=== PATIENT | female | born 1980 | race Caucasian/White ===

== ENCOUNTER → 2017-01-07 | Outpatient (CLI) | payer BC ==
[~2017-01-07] MED LIST: ACET-749 PO; IBUP-1427 PO; PRENTAB26 PO
--- NOTE | 2017-01-07 09:53 | DIAGNOSTIC IMAGING REPORT ---
Ultrasound left axillary region LEFT EXTREMITY NONVASCULAR LIMITED CLINICAL HISTORY: ENLARGED LYMPH NODES LEFT AXILLARY adenopathy TECHNIQUE: Ultrasound COMPARISON STUDY: 12/27/2015 FINDINGS: Unchanged minimal left axillary adenopathy. The palpable node is unchanged in dimension. These remain morphologically benign. IMPRESSION: Stable benign-appearing left axillary node Electronically signed by: Marco Antonio Porras M.D. 01/07/2017 9:51 AM Dictated Date/Time: 01/07/2017 9:49 AM
== END | disposition home or self-care (01) ==
LOC: C.ULTRBC 09:10
PROVIDERS: ATTEND Family Medicine
DX: R59.9 Enlarged lymph nodes, unspecified (principal)

== ENCOUNTER → 2017-02-04 | Outpatient (CLI) | payer BC | END | disposition home or self-care (01) | LOC: C.LAB1850 07:01 | PROVIDERS: ATTEND Obstetrics & Gynecology | DX: N64.3 Galactorrhea not associated with childbirth (principal) ==

== ENCOUNTER → 2017-05-13 | Outpatient (CLI) | payer BC ==
--- NOTE | 2017-05-13 15:23 | MAMMOGRAPHY REPORT ---
UNILATERAL LEFT DIGITAL DIAGNOSTIC MAMMOGRAM TOMOSYNTHESIS WITH CAD AND TARGETED LEFT ULTRASOUND: 05/01 CLINICAL HISTORY: The patient reports a palpable left breast lump for approximately 2 weeks. TECHNIQUE: Breast tomosynthesis in addition to standard 2D mammography was performed. Current study was also evaluated with a Computer Aided Detection (CAD) system. Left CC and MLO 2-D and tomosynthes is images were obtained. COMPARISON: No prior exams were available for comparison. BREAST COMPOSITION: The tissue of the left breast is heterogeneously dense, which may obscure small masses. FINDINGS: A triangle marker mancia the site of the palpable lump in the left medial breast at approxim ately 9:00. There is a possible lobulated 7 mm mass seen within the left medial breast near the huong on of the palpable marker, not clearly evident on the MLO view. The remainder of the left breast is negative, without suspicious masses, calcifications, or areas of architectural distortion noted. Targeted ultrasound was performed of the area of the palpable lump pointed out by the patient, in the left breast at 9:30, 3 cm from the nipple. At the site of the palpable lump there is an oval gently lobulated parallel circumscribed hypoechoic mass which measures 8 x 4 x 7 mm. This corresponds with the mammographic mass and is indeterminant. Ultrasound guided core needle biopsy is recommended for further evaluation. At the time of the ultrasound exam, the patient reports an existing palpable lump in the left upper o uter quadrant which she wanted me to evaluate with ultrasound. At the site of the palpable lump in t ej left breast at 2:00, approximately 9 cm from the nipple, there is an oval circumscribed hypoechoic mass with an echogenic fatty hilum, measuring 8 x 4 x 7 mm. Internal vascularity is present. This is benign and compatible with an intramammary lymph node. IMPRESSION: ACR BI-RADS CATEGORY 4: SUSPICIOUS, TARGETED ULTRASOUND ACR BI-RADS CATEGORY 4: SUSPICIO US 1. Hypoechoic 8 mm mass in the left breast at 9:30 at the site of the palpable lump pointed out by shaka pagan patient. The mass is indeterminate and ultrasound-guided core needle biopsy is recommended for fu rther evaluation. This may represent a fibroadenoma. 2. Benign intramammary lymph node at the site of another palpable lump pointed out by the patient in the left 2:00 breast. A phone call was made to the physician's office to confirm faxed results were received. The patient has been verbally notified of the results. She tentatively scheduled the biopsy before leaving the [facility]. Approximately 10% of breast cancers are not detected with mammography. A negative mammographic report should not delay biopsy if a clinically suggestive mass is present. Rina Rowan M.D. ah/:05/13/2017 10:33:56 Financial Analysis Consultant: Geno PEOPLES)([place]), [facility] letter sent: Abnormal 4/5 BI-RADS Code: ACR BI-RADS Category 4: Suspicious Ultrasound BI-RADS: ACR BI-RADS Category 4: Suspici ous
== END | disposition home or self-care (01) ==
LOC: C.MAMM 09:41
PROVIDERS: ATTEND Obstetrics & Gynecology
DX: N63 Unspecified lump in breast (principal)

== ENCOUNTER → 2017-05-26 | Outpatient (CLI) | payer BC ==
--- NOTE | 2017-05-26 14:27 | Discharge Instructions ---
Discharge Instructions Procedure Procedure Date: May 26, 2017. Reason for visit: Left Mass. Discharge Discharge Date: May 26, 2017. Discharge Diagnosis: post left breast ultrasound guided core biopsy Instructions Activity Recommendations: Additional Limitations (see below) Return to School/Work: no limitations Recommended Home Diet: No Limitations Provider Instructions: ACTIVITY RECOMMENDATIONS: * No lifting, pushing, pulling or exercising the affected side for three days. RETURN TO SCHOOL/WORK: * You may return to work/school after the procedure, but do not perform any strenuous activities for 24 to 48 hours. MEDICATIONS: * Tylenol (two 325 mg) every four to six hours if needed for mild pain (if not allergic to Tylenol). DIET: * Resume previous diet. SPECIAL CARE INSTRUCTIONS: * Keep biopsy site dry for 24 hours. May shower after 24 hours, but do not soak (bathe) incision. * May remove Tegaderm (plastic patch) tomorrow AFTER showering. * Leave the steri-strips on for one week. Allow the steri-strips to fall off by themselves. If not off after one week, you may remove them. You may place a Bandaid crosswise over the strips, if desired. * Apply ice 10 minutes on and 10 minutes off as needed. * Wear a bra at bedtime to sleep more comfortably for 2-3 days. * Your referring physician should have the results after approximately 5 to 7 business days. * Call for unusual bleeding, fever, drainage, etc or if you have any questions call [phone] during normal business hours or after hours call Dr Turk, . FOLLOW UP VISIT: Follow-up with Referring Physician as scheduled. Allergies Coded Allergies: No Known Allergies (Unverified , 10/28/13) Uncoded Allergies: NKA (Allergy, Unknown, 12/27/15) Radha Espinosa Recommendations: Call your doctor if: * Temperature above 101 degrees * Pain not relieved by pain medicine ordered * There is increased drainage or redness from any incision * You have any unanswered questions or concerns. Your Doctors Instructions noted above were prepared by provider Sharonda Turk. Patient Signature Section: Patient Instructions Signature Page Katina Gorman Patient (or Guardian) Signature/Date: I have read and understand the instructions given to me by my caregivers. Caregiver/RN/Doctor Signature/Date: The above-named patient and/or guardian has received patient instructions on this date. + Original Patient Signature Page (only) stays with chart. Please make copy for patient.
--- NOTE | 2017-05-27 07:53 | MAMMOGRAPHY REPORT ---
ULTRASOUND GUIDED BIOPSY LEFT BREAST: 05/26/2017 CLINICAL HISTORY: Solid palpable 8mm mass in the 9:30 left breast. Patient presents for ultrasound-g uided core needle biopsy. COMPARISON: Comparison is made to exams dated: 05/13/2017 ultrasound and 05/13/2017 mammogram - [facility] [address]. PATIENT CONSENT: The procedure, risks and benefits were discussed with the patient and informed conse nt was obtained both verbally and in writing. Specific risks to this procedure include: bleeding, in fection, puncture of adjacent structure, nontarget biopsy, sampling error, pain, metal allergy and me dication reaction. PROCEDURE DESCRIPTION: A time out was performed and the left breast was agreed as the site of biopsy. The skin was prepped and draped in the usual sterile fashion. The solid palpable hypoechoic 8mm mass in the 9:30 left breast was chosen as the target for biopsy. Subcutaneous and intraparenchymal 1% bu ffered lidocaine, with and without epinephrine, was administered as local anesthesia. A skin incision was made. Through the incision, 4 samples were taken with a 14 gauge Achieve biopsy device. A ribbo n shaped metallic marker was placed at the biopsy site. During deployment at the biopsy marker adher ed to the tip of the needle and was slightly withdrawn from the mass. Minor repositioning was perfor med and the biopsy marker clip resided at the inferior edge of the mass. Hemostasis was achieved aft er manual compression. The patient tolerated the procedure well and there was no immediate complicati on. The samples were sent to the pathology department in an appropriately labeled container. Postprocedure left CC and ML tomosynthesis images were obtained. There is a new ribbon-shaped biopsy marker clip along the posterior medial edge of the biopsied mass in the 9:30 left breast. No signif icant postbiopsy hematoma. IMPRESSION: ULTRASOUND GUIDED BIOPSY Status post ultrasound guided core needle biopsy of a solid palpable 8mm mass in the 9:30 left breast , with biopsy marker placed at the site. The patient will receive notification of the biopsy results from her referring physician. Sharonda Turk M.D. ay/:05/26/2017 14:56:00 Gunite Nozzle Operator: Geno PEOPLES)([place]), [facility] [address]
--- NOTE | 2017-05-27 07:53 | MAMMOGRAPHY REPORT ---
UNILATERAL LEFT DIGITAL DIAGNOSTIC MAMMOGRAM TOMOSYNTHESIS: 05/26/2017 CLINICAL HISTORY: Status post ultrasound guided core biopsy of a solid palpable circumscribed mass in the 9:30 left breast. Please refer to the report from left breast ultrasound guided core biopsy performed at the same time for full detail. IMPRESSION: POST PROCEDURE IMAGING FOR MARKER PLACEMENT Please refer to the report from left breast ultrasound guided core biopsy performed at the same time for full detail. Approximately 10% of breast cancers are not detected with mammography. A negative mammographic report should not delay biopsy if a clinically suggestive mass is present. Sharonda Turk M.D. ay/:05/26/2017 14:52:31 Trimming Caser: Geno PEOPLES)(M), [facility] BI-RADS Code: Post Procedure Imaging For Marker Placement
== END | disposition home or self-care (01) ==
LOC: C.MAMM 13:19
PROVIDERS: ATTEND Obstetrics & Gynecology
DX: N63 Unspecified lump in breast (principal)

== ENCOUNTER → 2018-01-19 | Outpatient (CLI) | payer OTHER ==
--- NOTE | 2018-01-19 10:03 | DIAGNOSTIC IMAGING REPORT ---
L WRIST MIN 3 VIEWS ROUTINE CLINICAL HISTORY: Left wrist pain COMPARISON: None. DISCUSSION: No fractures or dislocations are visualized. There are no erosive or destructive changes. IMPRESSION: Normal conventional radiographic evaluation of the left wrist Electronically signed by: Remington Chris M.D. 01/19/2018 10:02 AM Dictated Date/Time: 01/19/2018 10:01 AM
--- NOTE | 2018-01-19 10:05 | DIAGNOSTIC IMAGING REPORT ---
R FOOT MIN 3 VIEWS ROUTINE CLINICAL HISTORY: PAIN IN RIGHT FOOT COMPARISON: None. DISCUSSION: No acute fractures are visualized. 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 There is mild associated soft tissue swelling. No destructive lesions are evident. IMPRESSION: 1. No acute fractures 2. Arthritic changes at the level of the first metatarsal phalangeal joint Electronically signed by: Remington Chris M.D. 01/19/2018 10:03 AM Dictated Date/Time: 01/19/2018 10:02 AM
== END | disposition home or self-care (01) ==
LOC: C.RADBC 09:42
PROVIDERS: ATTEND Family Medicine
DX: M19.071 Primary osteoarthritis, right ankle and foot (principal); M25.532 Pain in left wrist

== ENCOUNTER → 2018-02-09 | Outpatient (CLI) | payer OTHER ==
--- NOTE | 2018-02-10 07:57 | MAMMOGRAPHY REPORT ---
BILATERAL DIGITAL DIAGNOSTIC MAMMOGRAM TOMOSYNTHESIS WITH CAD AND TARGETED LEFT ULTRASOUND: 02/09/2018 CLINICAL HISTORY: 37-year-old woman presents with new lumpiness in the left upper outer quadrant. Eleanor irene had a previous left breast biopsy in May 2017 which yielded a benign fibroadenoma which was palpab le in the 9:30 left breast. TECHNIQUE: Bilateral breast tomosynthesis in addition to standard 2D mammography was performed. Curre nt study was also evaluated with a Computer Aided Detection (CAD) system. COMPARISON: Comparison is made to exams dated: 05/26/2017 ultrasound biopsy, 05/26/2017 mammogram, 05/01 ultrasound, and 05/13/2017 mammogram - [facility]. BREAST COMPOSITION: The tissue of both breasts is heterogeneously dense, which may obscure small mas ses. FINDINGS: A triangular palpable marker overlies the upper outer posterior left breast, denoting the l umpiness pointed out by the patient. There is a stable mass and associated ribbon-shaped biopsy lissette er clip in the 930 middle one third of the left breast. No obvious new masses, asymmetries, areas of distortion or suspicious calcifications are seen bilaterally. Targeted ultrasound was performed in the 1:00, 2:00 and 3:00 axis of the left breast in the areas of lumps pointed out by the patient. On palpation, there is diffuse nodularity of the tissue in this ar ea. On ultrasound, sonographically normal tissue is seen without a suspicious solid or cystic mass. A morphologically normal lymph node is again seen in the left 2:00/axillary tail region. No focal s kin thickening or drainable fluid collection. IMPRESSION: ACR BI-RADS CATEGORY 2: BENIGN, TARGETED ULTRASOUND ACR BI-RADS CATEGORY 2: BENIGN 1. There is no suspicious mammographic or targeted sonographic abnormality in the area of lumpiness i n the left upper outer quadrant. Therefore, clinical follow-up is recommended, as biopsy of a clinic ally suspicious mass should not be precluded by negative imaging. 2. The left mammogram is otherwise stable with postbiopsy changes in the 9:30 axis, and no mammograp hic evidence of malignancy in the right breast. These results and recommendations were discussed with the patient at the time of the exam. Recommend annual screening mammography beginning at age 40 unless there is a new palpable concern. Approximately 10% of breast cancers are not detected with mammography. A negative mammographic report should not delay biopsy if a clinically suggestive mass is present. Sharonda Turk M.D. ay/:02/09/2018 08:57:38 Full Stack Web Developer: Gm PEOPLES)([place]), [facility] letter sent: Normal 1/2 BI-RADS Code: ACR BI-RADS Category 2: Benign Ultrasound BI-RADS: ACR BI-RADS Category 2: Benign
== END | disposition home or self-care (01) ==
LOC: C.MAMM 08:14
PROVIDERS: ATTEND Physician Assistant
DX: N63.21 Unspecified lump in the left breast, upper outer quadrant (principal)